=== PATIENT | male | born 1990 | race Caucasian/White ===

== ENCOUNTER 2017-11-11 13:26 | Emergency (ER) | payer BC ==
[2017-11-11 13:38] VITALS: BP 136/67
--- NOTE | 2017-11-11 13:53 | UC ---
Skin Complaint HPI - HPI Summary HPI Summary: Pt presents with wound to the web space between left thumb and index finger. He tells me that about 2 months ago he developed a blister in this area and popped it. Since then, this area will intermittently drain clear serous fluid, scab over, but never fully heal. He has had no fever, chills, bleeding, purulent drainage, swelling, decreased ROM, or pain. He does not participate in any sports, work, or activities requiring constant use of this hand. He denies wearing gloves. - History of Current Complaint Chief Complaint: UCLaceration Time Seen by Provider: 11/11/17 13:53 Stated Complaint: HAND INJURY Hx Obtained From: Patient Onset/Duration: Gradual Onset Skin Exposure Onset/Duration: Weeks Ago Timing: Constant Onset Severity: Mild Current Severity: Mild Pain Intensity: 1 Pain Scale Used: 0-10 Numeric - Allergy/Home Medications Allergies/Adverse Reactions: Allergies Allergy/AdvReac Type Severity Reaction Status Date / Time Amoxicillin [From Augmentin] Allergy Hives Verified 11/11/17 13:38 Clavulanic Acid Allergy Hives Verified 11/11/17 13:38 [From Augmentin] Review of Systems Constitutional: Negative Skin: Other - Wound webspace between left thumb and index finger Respiratory: Negative Cardiovascular: Negative Gastrointestinal: Negative Neurovascular: Negative Neurological: Negative Psychological: Negative All Other Systems Reviewed And Are Negative: Yes PMH/Surg Hx/FS Hx/Imm Hx Previously Healthy: Yes - Surgical History Surgical History: None Surgery Procedure, Year, and Place: - 2011. right hand- 1999 - Family History Known Family History: Positive: None - Social History Occupation: Employed Full-time Lives: With Family Alcohol Use: Weekly Substance Use Type: None Smoking Status (MU): Never Smoked Tobacco - Immunization History Most Recent Influenza Vaccination: unknown Most Recent Tetanus Shot: unknown-? last few years Physical Exam Triage Information Reviewed: Yes Appearance: Well-Appearing, Well-Nourished Vital Signs: Initial Vital Signs Temp 98.3 F 11/11/17 13:29 Pulse 80 11/11/17 13:29 Resp 16 11/11/17 13:29 BP 136/67 11/11/17 13:29 Pulse Ox 100 11/11/17 13:29 Vital Signs Reviewed: Yes Neck: Positive: Supple, Nontender, No Lymphadenopathy Respiratory: Positive: Chest non-tender, Lungs clear, Normal breath sounds, No respiratory distress, No accessory muscle use Cardiovascular: Positive: RRR, No Murmur, Pulses Normal, Brisk Capillary Refill - Left hand and all fingers Musculoskeletal: Positive: Strength Intact, ROM Intact - Left hand and all fingers, No Edema - Left hand and all fingers, Other: - NTTP left hand, fingers , or joints. No obvious bony deformities. Neurological: Positive: Alert, Other: - Sensations intact left hand and all fingers. Psychological: Positive: Age Appropriate Behavior Skin: Positive: Other - Left web space between thumb and index finger there is a 2-3mm in diameter area of erythema and skin erosion with surrounding callus. No edema, drainage, streaking, or ecchymosis. Course/Dx - Course Course Of Treatment: Pt was able to express mild serous fluid from the area - a culture was obtained and will be sent to the lab. Suspect his initial wound was due to overuse or persistent contact/rubbing use, but has since not healed properly. Advised to apply triple antibiotic ointment and keep covered daily for 14 days. Low suspicion for MRSA, but due to non-healing nature - will cover for MRSA with Bactrim. - Diagnoses Provider Diagnoses: Non-healing wound left hand Discharge - Discharge Plan Condition: Stable Disposition: HOME Prescriptions: Sulfamethox/Trimethoprim DS* [Bactrim DS 800/160 TAB*] 1 tab PO BID #20 tab Patient Education Materials: Chronic Wound Care (ED) Referrals: No Primary Care Phys,NOPCP [Primary Care Provider] - Additional Instructions: If you develop a fever, SOB, chest pain, discolored drainage, redness, swelling , difficulty moving your fingers, new or worsening symptoms - please call your PCP or go to the ED. 1) In addition to the antibiotic - Keep the area covered with a band-aid and over the counter antibiotic ointment for the next 10-14 days.
== END 2017-11-11 14:15 | disposition home or self-care (01) ==
LOC: UCEAST 13:26
DX: S61.402A Unspecified open wound of left hand, initial encounter (principal); X58.XXXA Exposure to other specified factors, initial encounter; Y93.9 Activity, unspecified; Y92.9 Unspecified place or not applicable; Y99.9 Unspecified external cause status
CPT/HCPCS: 87070; 87205; 99202; G0463

== ENCOUNTER 2017-12-10 10:23 | Emergency (ER) | payer BC ==
[2017-12-10 10:43] VITALS: BP 138/74
--- NOTE | 2017-12-10 11:53 | UC ---
Skin Complaint HPI - HPI Summary HPI Summary: none healing wound in web space between left index finger and thumb--area bleeds , is elevated and skin in firm around open area (currently with serous drainage) - History of Current Complaint Chief Complaint: UCUpperExtremity Time Seen by Provider: 12/10/17 11:44 Stated Complaint: WOUND ON HAND Hx Obtained From: Patient Onset/Duration: Sudden Onset Onset Severity: Mild Current Severity: Mild Location: Discrete Character: Redness, Raised Aggravating Factor(s): Nothing Alleviating Factor(s): Nothing Associated Signs & Symptoms: Positive: Drainage Related History: Other: - unknown what orginally started illness - Allergy/Home Medications Allergies/Adverse Reactions: Allergies Allergy/AdvReac Type Severity Reaction Status Date / Time Amoxicillin [From Augmentin] Allergy Hives Verified 12/10/17 10:38 Clavulanic Acid Allergy Hives Verified 12/10/17 10:38 [From Augmentin] Home Medications: Home Medications NK [No Home Medications Reported] 12/10/17 [History Confirmed 12/10/17] Review of Systems Constitutional: Negative Skin: Other - open area in web space between thumb and index finger Eyes: Negative ENT: Negative Respiratory: Negative Cardiovascular: Negative Gastrointestinal: Negative Genitourinary: Negative Motor: Negative Neurovascular: Negative Musculoskeletal: Negative Neurological: Negative Psychological: Negative Is Patient Immunocompromised?: No All Other Systems Reviewed And Are Negative: Yes PMH/Surg Hx/FS Hx/Imm Hx Previously Healthy: Yes - Surgical History Surgical History: None Surgery Procedure, Year, and Place: - 2011. right hand- 1999 - Family History Known Family History: Positive: None - Social History Occupation: Employed Full-time Lives: With Family Alcohol Use: Weekly Substance Use Type: None Smoking Status (MU): Never Smoked Tobacco - Immunization History Most Recent Influenza Vaccination: unknown Most Recent Tetanus Shot: unknown-? last few years Physical Exam Triage Information Reviewed: Yes Appearance: Well-Appearing, No Pain Distress, Well-Nourished Vital Signs: Initial Vital Signs Temp 98 F 12/10/17 10:39 Pulse 67 12/10/17 10:39 Resp 15 12/10/17 10:39 BP 138/74 12/10/17 10:39 Pulse Ox 100 12/10/17 10:39 Vital Signs Reviewed: Yes Eye Exam: Normal Eyes: Positive: Conjunctiva Clear ENT Exam: Normal ENT: Positive: Normal ENT inspection, Hearing grossly normal, Pharynx normal, TMs normal. Negative: Nasal congestion, Nasal drainage, Tonsillar swelling, Tonsillar exudate, Trismus, Muffled voice, Hoarse voice, Dental tenderness Dental Exam: Normal Neck exam: Normal Neck: Positive: Supple, Nontender, No Lymphadenopathy Respiratory Exam: Normal Respiratory: Positive: Chest non-tender, No respiratory distress, No accessory muscle use Cardiovascular Exam: Normal Cardiovascular: Positive: RRR, Pulses Normal, Brisk Capillary Refill Musculoskeletal Exam: Normal Musculoskeletal: Positive: Strength Intact, ROM Intact, No Edema Neurological Exam: Normal Neurological: Positive: Alert, Muscle Tone Normal, Fatigued Psychological Exam: Normal Skin: Positive: Other - non healing wound left hand Course/Dx - Course Course Of Treatment: mild soap and water wash, DSD, follow with Dr. Munoz as planned - Diagnoses Provider Diagnoses: non-healing wound on left hand Discharge - Discharge Plan Condition: Stable Disposition: HOME Patient Education Materials: Chronic Wound Care (ED), Warm Compress or Soak (ED ) Referrals: Rodo Munoz MD [Medical Doctor] - 12/17/17 8:10 am
== END 2017-12-10 12:22 | disposition home or self-care (01) ==
LOC: UCEAST 10:23
DX: S61.402A Unspecified open wound of left hand, initial encounter (principal); X58.XXXA Exposure to other specified factors, initial encounter; Y93.9 Activity, unspecified; Y92.9 Unspecified place or not applicable; Z88.1 Allergy status to other antibiotic agents
CPT/HCPCS: 99212; G0463